=== PATIENT | female | born 1960 | race Caucasian/White ===

== ENCOUNTER 2019-02-17 13:41 | Emergency (ER) | payer BC ==
--- NOTE | 2019-02-17 14:32 | ER Document Report ---
ED Medical Screen (RME) - General Chief Complaint: Abdominal Pain Stated Complaint: ABDOMINAL PAIN Time Seen by Provider: 02/17/19 14:27 Mode of Arrival: Ambulatory Information source: Patient Notes: 58-year-old female presented to ED for complaint of abdominal pain off and on for couple of months. For the last week he has been constant. 2 weeks ago on Wednesday she became very nauseated and was not able to eat anything through Wednesday of the following week. Wednesday night she was able to eat a little bit but was not able to get up out of her room due to weakness. She states throughout this whole time she has been burping constantly. she became nauseated again through today and is not able to eat. The primary care doctor did not have an available appointment so they sent her to the urgent care and when she called the urgent care they said they would not be able to treat her because she would probably need imaging and they did not have that available so they sent her to the emergency room. Patient states she does not drink smoke or use any illicit drugs. Very morbidly obese at 198 kg bmi of 85.3. I have greeted and performed a rapid initial assessment of this patient. A comprehensive ED assessment and evaluation of the patient, analysis of test results and completion of medical decision making process will be conducted by an additional ED providers. - Related Data Allergies/Adverse Reactions: Penicillins Allergy (Verified 02/17/19 14:25) simethicone Allergy (Verified 02/17/19 14:25) Past Medical History - General Information source: Patient - Social History Cigarette use (# per day): No Frequency of alcohol use: None Drug Abuse: None Lives with: Friend Family history: Reviewed & Not Pertinent - Past Medical History Cardiac Medical History: Reports: Other - Mitral valve prolapse minor Pulmonary Medical History: Reports: Hx Asthma, Hx Pneumonia EENT Medical History: Reports: None Neurological Medical History: Reports: None Endocrine Medical History: Reports: Other - 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
[2019-02-17 15:20] LABS: HEMOGLOBIN 12.9 g/dL (12.0-15.5); MEAN CORPUSCULAR HEMOGLOBIN 28.1 pg (27.0-33.4); MEAN CORPUSCULAR HGB CONC 33.1 g/dL (32.0-36.0); MEAN CORPUSCULAR VOLUME 85 fl (80-97); PLATELET COUNT 266 10^3/uL (150-450); RED CELL DISTRIBUTION WIDTH 16.9 % (11.5-14.0); WHITE BLOOD COUNT 24.6 10^3/uL (4.0-10.5)
[2019-02-17 15:32] LABS: ALBUMIN 3.6 g/dL (3.5-5.0); ALKALINE PHOSPHATASE 245 U/L (38-126); ANION GAP 13 (5-19); ASPARTATE AMINO TRANSFERASE 77 U/L (14-36); BILIRUBIN,DIRECT 10.4 mg/dL (0.0-0.4); BILIRUBIN,TOTAL 12.7 mg/dL (0.2-1.3); BLOOD UREA NITROGEN 22 mg/dL (7-20); CALCIUM 9.4 mg/dL (8.4-10.2); CARBON DIOXIDE 26 mmol/L (22-30); CHLORIDE 99 mmol/L (98-107); GLUCOSE 147 mg/dL (75-110); POTASSIUM 3.4 mmol/L (3.6-5.0); TOTAL PROTEIN 6.7 g/dL (6.3-8.2)
[2019-02-17 15:51] LABS: BAND NEUTROPHILS % (MANUAL) 8 % (3-5); BASOPHILS % (MANUAL) 0 % (0-2); EOSINOPHILS % (MANUAL) 0 % (0-6); LYMPHOCYTES % (MANUAL) 4 % (13-45); METAMYELOCYTES % (MANUAL) 1 % (0-1); MONOCYTES % (MANUAL) 4 % (3-13); SEGMENTED NEUTROPHILS % (MAN) 83 % (42-78); TOTAL CELLS COUNTED 100
[2019-02-17 15:52] LABS: ANISOCYTOSIS 1+; PLATELET COMMENT ADEQUATE
[2019-02-17] MEDS ORDERED: NORMAL SALINE 1000 ML 2,000 ML IV ONE (17:39)
[2019-02-17] MEDS ORDERED: ONDANSETRON HCL INJ/PF 4 MG/2 ML SDV IV ONE (17:51)
[2019-02-17] MEDS ORDERED: MORPHINE SULFATE 10 MG/ML INJ IV ONE (17:51)
--- NOTE | 2019-02-17 17:54 | ER Document Report ---
ED General - General Mode of Arrival: Ambulatory TRAVEL OUTSIDE OF THE [place]. IN LAST 30 DAYS: No <KERI RAEHANIE Sharmaine - Last Filed: 02/18/19 00:13> <BRAD DINH - Last Filed: 02/18/19 07:54> - General Chief Complaint: Nausea/Vomiting Stated Complaint: ABDOMINAL PAIN Time Seen by Provider: 02/17/19 14:27 Primary Care Provider: CURT DANIELLE MD [Primary Care Provider] - Follow up as needed Notes: Patient is a 58-year-old female who presents to the emergency department with a chief complaint of nausea, vomiting, and abdominal pain. Patient has had her symptoms for the past few weeks. This last week it has gotten progressively worse. Patient states that she is able to keep down water, but everything else ends up coming up. The pain is in her mid upper abdomen. Patient states that her primary care did not have any appointments, therefore she went to urgent care and urgent care then referred her to us. Pain is in the mid upper abdomen. Pain does not radiate. Past medical history includes hypothyroidism and she is also currently on oxybutynin for urinary spasms. (VICKEY RAE) - Related Data Allergies/Adverse Reactions: Penicillins Allergy (Verified 02/17/19 14:25) simethicone Allergy (Verified 02/17/19 14:25) Past Medical History - General Information source: Patient - Social History Smoking Status: Never Smoker Cigarette use (# per day): No Chew tobacco use (# tins/day): No Frequency of alcohol use: None Drug Abuse: None Lives with: Friend Patient has suicidal ideation: No Patient has homicidal ideation: No - Past Medical History Cardiac Medical History: Reports: Other - Mitral valve prolapse minor Pulmonary Medical History: Reports: Hx Asthma, Hx Pneumonia EENT Medical History: Reports: None Neurological Medical History: Reports: None Endocrine Medical History: Reports: Other - 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 Denies recent unintentional weight loss. Denies fever, chills, or sweats. EENT: Denies eye, ear, throat, or mouth pain, discharge, or symptoms. Denies nasal or sinus congestion. CARDIOVASCULAR: Denies chest pain. RESPIRATORY: Denies shortness of breath, cough, congestion, difficulty breathing, or wheezing. GASTROINTESTINAL: See HPI. GENITOURINARY: Denies difficulty urinating, burning, blood in urine, urgency or frequency. MUSCULOSKELETAL: Denies neck and back pain. Denies joint pain or swelling. SKIN: Denies rash, itchiness, or lesions HEMATOLOGIC : Denies easy bruising or bleeding. LYMPHATIC: Denies swollen, painful, enlarged glands. NEUROLOGICAL: Denies no numbness or tingling denies weakness. Denies headache. Denies altered mental status. Denies alteration in speech. PSYCHIATRIC: Denies stress, anxiety, alteration in sleep patterns, or depression. All other systems reviewed and negative. (VICKEY RAE) Physical Exam <VICKEY RAE - Last Filed: 02/18/19 00:13> - Vital signs Vitals: Temp Pulse Resp BP Pulse Ox 98 F 92 20 128/68 H 95 02/17/19 14:01 02/17/19 14:01 02/17/19 14:01 02/17/19 14:01 02/17/19 14:01 - Notes Notes: PHYSICAL EXAMINATION: GENERAL: Appears morbidly obese, no acute distress. HEAD: Normocephalic, atraumatic. EYES: PERRL, conjunctiva normal, all extraocular movements intact, sclera nonicteric ENT: Moist mucous membranes. NECK: Supple, no noticeable swelling, redness, rash. Normal range of motion. LUNGS: Equal breath sounds bilaterally and clear to auscultation. No wheezes rales or rhonchi. CARDIOVASCULAR: S1-S2, regular rate, regular rhythm. Radial pulses 2+, normal. ABDOMEN: Normoactive bowel sounds. Soft, tender mid upper abdomen, no guarding, no rebound tenderness, and no masses palpated. EXTREMITIES: Normal strength and range of motion, no pitting or edema. No cyanosis. NEUROLOGICAL: Moves all extremities upon command. Strength 5/5 in all extremities. PSYCH: Normal mood, normal affect. SKIN: Warm, dry. No rash, lesions, ulcerations noted. Normal skin turgor. (VICKEY RAE) Course - Laboratory Result Diagrams: 02/17/19 14:57 02/17/19 14:57 <VICKEY RAE - Last Filed: 02/18/19 00:13> - Laboratory Result Diagrams: 02/17/19 14:57 02/17/19 14:57 - Diagnostic Test Radiology reviewed: Reports reviewed <BRAD DINH - Last Filed: 02/18/19 07:54> - Re-evaluation Re-evalutation: 02/17/19 17:53 Patient has a leukocytosis of 24,600. Chemistry shows a lipase of 3621, consistent with pancreatitis. She also has an acute kidney injury with a BUN of 22 and creatinine of 1.56. Patient's total bilirubin is 12.7 and direct bilirubin is 10.4. Patient will be sent for a CT of the abdomen pelvis. 02/17/19 19:36 CT abdomen and pelvis is negative at this time. I spoke with Dr. Mccloud, my attending physician. She is recommending that I speak with the radiologist to determine how large the common bile duct is. I also spoke with [facility]. They will call me back with the GI doctor. 02/17/19 19:[address] Rea, the radiologist he states the common bile duct is about 7 to 8 mm, but states that it is hard to distinguish due to contrast not reaching that area, most likely due to the patient's size. 02/17/19 20:41 I spoke with the GI doctor on-call at [facility] and he would like to have the patient transferred to [facility] and with Dr. Pelon Alvarado is the admitting physician. Urinalysis shows a small amount of blood. 02/17/19 22:44 Chest x-ray and x-ray of the neck are unremarkable. (KYRAVICKEY Sharmaine) 02/18/19 01:07 Consulted with [facility] and consulted with Dr. Anthony regarding patient status and reviewed diagnostic results. Dr. Anthony recommends giving meropenem IV instead of ertapenem for broader coverage. Also recommends attempting transfer at another facility to help expedite patient's transfer at this time as they do not have a bed readily available. 02/18/19 02:33 call placed to [facility] transfer center for consultation 02/18/19 03:47 Spoke with [facility] Dr Aric Barber who agrees to accept patient for transfer at this time. 02/18/19 07:00 Patient resting comfortably at this time, vital signs stable. Stable for transfer. (BRAD DINH) - Vital Signs Vital signs: Temp Pulse Resp BP Pulse Ox 98.9 F 74 20 146/93 H 95 02/18/19 07:36 02/18/19 07:36 02/18/19 07:36 02/18/19 07:13 02/18/19 07:36 - Laboratory Laboratory results interpreted by me: 02/17/19 02/17/19 02/17/19 14:57 14:57 16:20 WBC 24.6 H RDW 16.9 H Seg Neuts % (Manual) 83 H Band Neutrophils % 8 H Lymphocytes % (Manual) 4 L Abs Neuts (Manual) 22.6 H Potassium 3.4 L BUN 22 H Creatinine 1.56 H Est GFR ( Amer) 42 L Est GFR (MDRD) Non-Af 34 L Glucose 147 H Total Bilirubin 12.7 H Direct Bilirubin 10.4 H AST 77 H Alkaline Phosphatase 245 H Lipase 3621.2 H Urine Blood SMALL H Discharge <VICKEY RAE - Last Filed: 02/18/19 00:13> <BRAD DINH - Last Filed: 02/18/19 07:54> - Discharge Clinical Impression: Elevated bilirubin Pancreatitis Qualifiers: Chronicity: acute Pancreatitis type: unspecified pancreatitis type Acute pancreatitis complication: unspecified Qualified Code(s): K85.90 - Acute pancreatitis without necrosis or infection, unspecified Abdominal pain Qualifiers: Abdominal location: epigastric Qualified Code(s): R10.13 - Epigastric pain Leukocytosis Qualifiers: Leukocytosis type: bandemia Qualified Code(s): D72.825 - Bandemia Condition: Fair Disposition: [facility] Referrals: CURT DANIELLE MD [Primary Care Provider] - Follow up as needed
--- NOTE | 2019-02-17 19:08 | RADIOLOGY REPORT (SQ) ---
EXAM DESCRIPTION: CT ABD/PELVIS WITH IV ONLY COMPLETED DATE/TIME: 02/17/2019 6:43 pm REASON FOR STUDY: abdominal pain COMPARISON: None. TECHNIQUE: CT scan of the abdomen and pelvis performed using helical scanning technique with dynamic intravenous contrast injection. No oral contrast. Images reviewed with lung, soft tissue, and bone w indows. Reconstructed coronal and sagittal MPR images reviewed. Delayed images were not acquired. All images stored on PACS. All CT scanners at this facility use dose modulation, iterative reconstruction, and/or weight based d osing when appropriate to reduce radiation dose to as low as reasonably achievable (ALARA). [facility]: Dose Right [facility]: CareDose [facility]: Dose Right [facility]: Teradose 4D [facility]: Embedded Chat CONTRAST TYPE AND DOSE: contrast/concentration: Isovue 300.00 mg/ml; Total Contrast Delivered: 99.0 ml; Total Saline Delivered: 72.0 ml RENAL FUNCTION: BUN 22 creatinine 1.56 RADIATION DOSE: CT Rad equipment meets quality standard of care and radiation dose reduction techniq ues were employed. CTDIvol: 21.1 - 30.0 mGy. DLP: 2869 mGy-cm.. LIMITATIONS: None. FINDINGS: LOWER CHEST: No significant findings. Left lower lobe calcified granulomas. LIVER: Normal size. No enhancing masses. No dilated ducts. SPLEEN: Normal size. Scattered calcified granulomas. . PANCREAS: No masses identified. No significant calcifications. No adjacent inflammation or peripancre atic fluid collections. Pancreatic duct not dilated. GALLBLADDER: No calcified stones. No inflammatory changes to suggest cholecystitis. ADRENAL GLANDS: No significant masses. RIGHT KIDNEY AND URETER: No cysts identified. No solid masses identified. No calcified stones. No hyd ronephrosis or hydroureter. LEFT KIDNEY AND URETER: No cysts identified. No solid masses identified. No calcified stones. No hydr onephrosis or hydroureter. AORTA AND VESSELS: No aneurysm. No dissection. Renal arteries, SMA, celiac without significant stenos is. RETROPERITONEUM: No bulky retroperitoneal adenopathy. BOWEL AND PERITONEAL CAVITY: No obstruction or inflammatory changes. No free fluid. APPENDIX: Normal. PELVIS: No mass. No free fluid. Unremarkable bladder. ABDOMINAL WALL: 9.5 cm fat containing paraumbilical hernia. BONES: No acute findings. OTHER: No other significant finding. IMPRESSION: No acute inflammatory changes. TECHNICAL DOCUMENTATION: JOB ID: [id number] Quality ID # [id number]: Final reports with documentation of one or more dose reduction techniques (e.g., Au tomated exposure control, adjustment of the mA and/or kV according to patient size, use of iterative reconstruction technique) 2010 [employer]- All Rights Reserved Reading location - IP/workstation name: [email or web address]
[2019-02-17 20:23] LABS: APPEARANCE,URINE CLEAR; BILIRUBIN,URINE NEGATIVE (NEGATIVE); COLOR,URINE YELLOW; GLUCOSE, URINE NEGATIVE (NEGATIVE); KETONES,URINE NEGATIVE (NEGATIVE); PROTEIN,URINE NEGATIVE (NEGATIVE); URINE SPECIFIC GRAVITY 1.002; UROBILINOGEN,URINE NEGATIVE mg/dL (<2.0)
--- NOTE | 2019-02-17 21:28 | RADIOLOGY REPORT (SQ) ---
EXAM DESCRIPTION: XR CHEST 1 VIEW COMPLETED DATE/TME: 02/17/2019 20:13 . CLINICAL HISTORY: sensation of something in throat COMPARISON: Abdomen per day FINDINGS: Cardiac silhouette is within normal limits. Aorta is tortuous. Lung apices are overpenetrated. There is nodular opacity within the periphery of the left mid lung compatible with a calcified pulmonary nodule. There is no focal parenchymal or pleural disease. There is no acute osseous process visualized. IMPRESSION: No evidence of acute cardiopulmonary disease.
--- NOTE | 2019-02-17 21:31 | RADIOLOGY REPORT (SQ) ---
EXAM DESCRIPTION: XR NECK SOFT TISSUE COMPLETED DATE/TME: 02/17/2019 20:14 CLINICAL HISTORY: sensation of something in throat COMPARISON: None FINDINGS: Two x-ray views of the neck were submitted. Prevertebral soft tissues are within normal. There is no radiopaque foreign body material. IMPRESSION: No acute abnormalities.
[2019-02-17] MEDS ORDERED: NORMAL SALINE 1000 ML 1,000 ML IV ONE (22:19)
[2019-02-18] MEDS: MORPHINE SULFATE 10 MG/ML INJ IV PRN ×2 (00:47→06:24)
[2019-02-18] MEDS: ERTAPENEM SODIUM INJ 1 GM VIAL IV ONE ×2 (00:49→01:15)
[2019-02-18] MEDS: MEROPENEM 1 GM VIAL IV SCH ×2 (01:17→06:24)
[2019-02-18 07:20] VITALS: BP 146/93
== END 2019-02-18 07:45 | disposition short-term general hospital (02) ==
LOC: ER 13:41
DX: K85.90 Acute pancreatitis without necrosis or infection, unspecified (principal); N17.9 Acute kidney failure, unspecified; R79.89 Other specified abnormal findings of blood chemistry; R10.13 Epigastric pain; D72.825 Bandemia; R11.2 Nausea with vomiting, unspecified; R31.9 Hematuria, unspecified; J45.909 Unspecified asthma, uncomplicated; R25.2 Cramp and spasm; Z79.899 Other long term (current) drug therapy; Z88.0 Allergy status to penicillin; Z88.8 Allergy status to other drugs, medicaments and biological substances
CPT/HCPCS: 96376; 99285; 96361; 96374; 96375; 36415; 87040; 83690; 85025; 80053; 81001; 83605; 71045; 70360; 74177; J2270 ×2; J2405; J7030; J2185; J1335

== ENCOUNTER 2019-06-17 12:07 | Emergency (ER) | payer BC ==
--- NOTE | 2019-06-17 12:52 | ER Document Report ---
ED Medical Screen (RME) - General Chief Complaint: Abdominal Pain Stated Complaint: ABDOMINAL PAIN Time Seen by Provider: 06/17/19 12:48 Primary Care Provider: SILVA ARITA MD [Primary Care Provider] - Follow up as needed TRAVEL OUTSIDE OF THE [place]. IN LAST 30 DAYS: No - HPI Notes: 06/17/19 12:51 Patient is a 58-year-old morbidly obese female with history of pancreatitis, "g allbladder that needs to come out," "a blood clot in my liver" (on Xarelto) presents complaining of epigastric/upper abdominal pain that began 3 days ago. Patient states it feels similar to pancreatitis. The pain does radiate up into her chest. No fever or shortness of breath. I have treated and performed a rapid initial assessment of this patient. A comprehensive ED assessment and evaluation of the patient, analysis of test results and completion of medical decision making process will be conducted by additional ED providers. PHYSICAL EXAMINATION: GENERAL: Well-appearing, well-nourished and in no acute distress. Abdomen: Limited exam triage, there is tenderness the epigastrium. - Related Data Allergies/Adverse Reactions: Penicillins Allergy (Verified 06/17/19 12:48) simethicone Allergy (Verified 06/17/19 12:48) Past Medical History - Social History Family history: Reviewed & Not Pertinent Pulmonary Medical History: Reports: Hx Asthma, Hx Pneumonia Physical Exam - Vital signs Vitals: Temp Pulse Resp BP Pulse Ox 98.4 F 70 22 H 172/99 H 96 06/17/19 12:19 06/17/19 12:19 06/17/19 12:19 06/17/19 12:19 06/17/19 12:19 Course - Vital Signs Vital signs: Temp Pulse Resp BP Pulse Ox 98.4 F 70 22 H 172/99 H 96 06/17/19 12:19 06/17/19 12:19 06/17/19 12:19 06/17/19 12:19 06/17/19 12:19 Doctor's Discharge - Discharge Referrals: SILVA ARITA MD [Primary Care Provider] - Follow up as needed
[2019-06-17] MEDS ORDERED: ONDANSETRON 4 MG TAB.RAPDIS PO ONE (12:53)
[2019-06-17 13:40] LABS: ABSOLUTE LYMPHOCYTES (AUTO) 0.5 10^3/uL (0.5-4.7); ABSOLUTE MONOCYTES (AUTO) 0.3 10^3/uL (0.1-1.4); ABSOLUTE NEUT (AUTO) 4.6 10^3/uL (1.7-8.2); BASOPHILS % (AUTO) 0.3 % (0-2); EOSINOPHILS % (AUTO) 0.5 % (0-6); HEMATOCRIT 38.5 % (36.0-47.0); LYMPHOCYTES % (AUTO) 9.8 % (13-45); MEAN CORPUSCULAR HEMOGLOBIN 29.6 pg (27.0-33.4); MEAN CORPUSCULAR HGB CONC 33.7 g/dL (32.0-36.0); MEAN CORPUSCULAR VOLUME 88 fl (80-97); MONOCYTES % (AUTO) 5.2 % (3-13); PLATELET COUNT 187 10^3/uL (150-450); RED BLOOD COUNT 4.38 10^6/uL (3.72-5.28); RED CELL DISTRIBUTION WIDTH 14.1 % (11.5-14.0); SEGMENTED NEUTROPHILS % (AUTO) 84.2 % (42-78); TOTAL CELLS COUNTED % (AUTO) 100 %; WHITE BLOOD COUNT 5.4 10^3/uL (4.0-10.5)
[2019-06-17 13:43] LABS: INTERNATIONAL RATION (INR) 0.95; PROTHROMBIN TIME 12.7 SEC (11.4-15.4)
[2019-06-17 13:44] LABS: PARTIAL THROMBOPLASTIN TIME 32.1 SEC (23.5-35.8)
[2019-06-17] MEDS ORDERED: MORPHINE SULFATE 10 MG/ML INJ IV ONE ×2 (13:51→18:46)
--- NOTE | 2019-06-17 13:54 | RADIOLOGY REPORT (SQ) ---
EXAM DESCRIPTION: CHEST SINGLE VIEW COMPLETED DATE/TIME: 06/17/2019 1:38 pm REASON FOR STUDY: epigastric pain COMPARISON: 02/28/2019. EXAM PARAMETERS: NUMBER OF VIEWS: One view. TECHNIQUE: Single frontal radiographic view of the chest acquired. RADIATION DOSE: NA LIMITATIONS: Limited penetration. FINDINGS: LUNGS AND PLEURA: No opacities, masses or pneumothorax. No pleural effusion. MEDIASTINUM AND HILAR STRUCTURES: No masses. Contour normal. HEART AND VASCULAR STRUCTURES: Cardiomegaly. BONES: No acute findings. HARDWARE: None in the chest. OTHER: No other significant finding. IMPRESSION: LIMITED STUDY. CARDIOMEGALY. NO APPARENT ACUTE RADIOGRAPHIC FINDING IN THE CHEST. TECHNICAL DOCUMENTATION: JOB ID: [id number] 2010 [employer]- All Rights Reserved Reading location - IP/workstation name: [email or web address]
[2019-06-17 13:56] LABS: ALBUMIN 4.2 g/dL (3.5-5.0); ALKALINE PHOSPHATASE 364 U/L (38-126); ANION GAP 12 (5-19); ASPARTATE AMINO TRANSFERASE 109 U/L (14-36); BILIRUBIN,DIRECT 4.1 mg/dL (0.0-0.4); BILIRUBIN,TOTAL 5.6 mg/dL (0.2-1.3); BLOOD UREA NITROGEN 12 mg/dL (7-20); CALCIUM 9.7 mg/dL (8.4-10.2); CARBON DIOXIDE 27 mmol/L (22-30); CHLORIDE 97 mmol/L (98-107); GLUCOSE 118 mg/dL (75-110); POTASSIUM 3.5 mmol/L (3.6-5.0); TOTAL PROTEIN 7.4 g/dL (6.3-8.2)
[2019-06-17] MEDS ORDERED: IPRATROPIUM/ALBUTEROL 0.5-2.5 MG/3 ML AMPUL NEB ONE (15:21)
--- NOTE | 2019-06-17 15:43 | ER Document Report ---
ED General - General TRAVEL OUTSIDE OF THE [place] IN LAST 30 DAYS: No - Related Data Home Medications: xarelto. synthroid. hydroxyzine. oxybutynin. pantoprazole. polyethylene. senokot. simethicone. tylenol <AMY GALEANO - Last Filed: 06/17/19 16:05> <EPIFANIO STALEY - Last Filed: 06/17/19 18:13> - General Chief Complaint: Abdominal Pain Stated Complaint: ABDOMINAL PAIN Time Seen by Provider: 06/17/19 12:48 Primary Care Provider: SILVA ARITA MD [ACTIVE STAFF] - Follow up as needed - HPI Notes: 58-year-old female complaining of abdominal pain nausea vomiting wheezing and shortness of breath. Patient had a similar presentation to this hospital about 3 months ago and at that time was found to have pancreatitis and hyperbilirubinemia and was subsequently transferred to [facility]. She was found to have cholelithiasis and portal vein thrombosis. After an extended hospitalization she was discharged on Xarelto. She continues to take Xarelto. She denies abuse of alcohol. Patient describes her discomfort as epigastric radiating to the both breasts and into posterior thoracic area. (AMY GALEANO) - Related Data Allergies/Adverse Reactions: Penicillins Allergy (Verified 06/17/19 12:48) simethicone Allergy (Verified 06/17/19 12:48) Past Medical History - General Information source: Patient - Social History Smoking Status: Never Smoker Chew tobacco use (# tins/day): No Frequency of alcohol use: None Drug Abuse: None Family History: Reviewed & Not Pertinent Patient has suicidal ideation: No Patient has homicidal ideation: No Pulmonary Medical History: Reports: Hx Asthma, Hx Pneumonia GI Medical History: Reports: Hx Pancreatitis, Other - Cholelithiasis. Portal vein thrombosis. <AMY GALEANO - Last Filed: 06/17/19 16:05> Review of Systems <AMY GALEANO - Last Filed: 06/17/19 16:05> - Review of Systems Notes: Constitutional: Negative for fever. HENT: Negative for sore throat. Eyes: Negative for visual changes. Cardiovascular: Negative for chest pain. Respiratory: As per HPI. Gastrointestinal: As per HPI. Genitourinary: Negative for dysuria. Musculoskeletal: As per HPI. Skin: Negative for rash. Neurological: Negative for headaches, weakness or numbness. 10 point ROS negative except as marked above and in HPI. (AMY GALEANO) Physical Exam <AMY GALEANO - Last Filed: 06/17/19 16:05> - Vital signs Vitals: Temp Pulse Resp BP Pulse Ox 98.4 F 70 22 H 172/99 H 96 06/17/19 12:19 06/17/19 12:19 06/17/19 12:19 06/17/19 12:19 06/17/19 12:19 - Notes Notes: GENERAL: Obese female appearing much older than her stated age. SKIN: Good turgor no rashes. HEAD: Normocephalic atraumatic. EYES: PERRLA. EOMI. Conjunctivae and sclerae clear. EARS: CANALS AND TMS CLEAR. NOSE: CLEAR. MOUTH: Moist mucosa. Good dentition. No stridor or edema. No drooling. NECK: Supple. No masses or thyromegaly. No adenopathy. Carotids 2+ without bruits. No JVD. BACK: Symmetrical without tenderness. CHEST: Mildly tachypneic. End expiratory wheezes and scattered rhonchi bilaterally with symmetrical breath sounds. HEART: Regular rhythm. No murmur gallop or rub. ABDOMEN: Moderate epigastric tenderness. Soft obese without masses, organomegaly or rebound. Bowel sounds normally active. No bruits. GENITALIA: Deferred. EXTREMITIES: 3+ brawny edema both lower legs. No calf tenderness. Cap refill less than 1.5 seconds. Dorsalis pedis and posterior tibial pulses 3+ and symmetrical. NEUROLOGICAL: GCS 15. Alert and oriented x3. Fluent speech. Cranial nerves II through XII intact. Sensorimotor and cerebellar normal. Normal tone. PSYCHIATRIC: Anxious affect. (AMY GALEANO) Course - Laboratory Result Diagrams: 06/17/19 13:18 06/17/19 13:18 <AMY GALEANO - Last Filed: 06/17/19 16:05> - Laboratory Result Diagrams: 06/17/19 13:18 06/17/19 13:18 - Diagnostic Test Radiology reviewed: Image reviewed, Reports reviewed - EKG Interpretation by [facility] EKG shows normal: Sinus rhythm, Intervals, QRS Complexes, ST-T Waves Rate: Normal Rhythm: NSR [place]/QRS: Left axis deviation <EPIFANIO STALEY - Last Filed: 06/17/19 18:13> - Re-evaluation Re-evalutation: 06/17/19 15:52 Review of labs consistent with recurrent pancreatitis. Pending studies this time include arterial blood gas and CT abdomen pelvis with IV contrast. Anticipate patient will need to be transferred back to [facility]. 06/17/19 16:05 Further care of this patient is turned over to Dr. Epifanio Staley 1600 hours. (AMY GALEANO) 06/17/19 17:48 The patient has a right lower lobe pneumonia on CT abd/pelvis and her pancreas is inflamed and consistent with acute pancreatitis. Will obtain blood cultures and treat with Levaquin. The patient has a history of portal vein thrombosis and gallstones and she is followed at [facility] for her GI issues. The patient says she was supposed to have some gallstones removed (not sure if she means her gallbladder or having an ERCP) but she says this was put on hold given her portal vein thrombosis. Will call [facility] for likely transfer. 06/17/19 18:12 [facility] accepted the patient under Dr. Bradley to a medical floor bed. [facility] requested a Flu swab prior to transfer. (EPIFANIO STALEY) - Vital Signs Vital signs: Temp Pulse Resp BP Pulse Ox 98.4 F 70 20 154/90 H 98 06/17/19 12:19 06/17/19 12:19 06/17/19 17:01 06/17/19 17:00 06/17/19 17:01 - Laboratory Laboratory results interpreted by al: 06/17/19 06/17/19 06/17/19 13:18 13:18 13:18 RDW 14.1 H Lymph % (Auto) 9.8 L Seg Neutrophils % 84.2 H Carbonic Acid ABG pCO2 ABG pO2 ABG HCO3 ABG Total CO2 Sodium 136.4 L Potassium 3.5 L Chloride 97 L Creatinine 0.41 L Glucose 118 H Total Bilirubin 5.6 H Direct Bilirubin 4.1 H AST 109 H ALT 128 H Alkaline Phosphatase 364 H NT-Pro-B Natriuret Pep 201 H Lipase 47516.5 H 06/17/19 16:01 RDW Lymph % (Auto) Seg Neutrophils % Carbonic Acid 1.44 H ABG pCO2 47.7 H ABG pO2 111.5 H ABG HCO3 26.7 H ABG Total CO2 28.2 H Sodium Potassium Chloride Creatinine Glucose Total Bilirubin Direct Bilirubin AST ALT Alkaline Phosphatase NT-Pro-B Natriuret Pep Lipase Discharge <AMY GALEANO E - Last Filed: 06/17/19 16:05> - Discharge Admitting Provider: Dr. Bradley Unit Admitted: Medical Floor <EPIFANIO STALEY H - Last Filed: 06/17/19 18:13> - Discharge Clinical Impression: Acute pancreatitis Qualifiers: Pancreatitis type: unspecified pancreatitis type Acute pancreatitis complication: unspecified Qualified Code(s): K85.90 - Acute pancreatitis without necrosis or infection, unspecified Pneumonia Qualifiers: Pneumonia type: due to unspecified organism Laterality: right Lung location: lower lobe of lung Qualified Code(s): J18.9 - Pneumonia, unspecified organism Condition: Stable Disposition: [facility] Referrals: SILVA ARITA MD [ACTIVE STAFF] - Follow up as needed
[2019-06-17 16:18] LABS: ARTERIAL BLOOD BASE EXCESS 0.8 mmol/L; ARTERIAL BLOOD FIO2 36%; ARTERIAL BLOOD H2CO3 1.44 mmol/L (1.05-1.35); ARTERIAL BLOOD HCO3 26.7 mmol/L (20-24); ARTERIAL BLOOD O2 SATURATION 97.9 % (94-98); ARTERIAL BLOOD PCO2 47.7 mmHg (35-45); ARTERIAL BLOOD PH 7.37 (7.35-7.45); ARTERIAL BLOOD PO2 111.5 mmHg (80-100); ARTERIAL BLOOD TOTAL CO2 28.2 mmol/L (21-25)
--- NOTE | 2019-06-17 17:33 | EKG REPORT ---
SEVERITY:- OTHERWISE NORMAL ECG - SINUS RHYTHM BORDERLINE LEFT AXIS DEVIATION : Confirmed by: Ninfa Torres MD 17-Jun-2019 17:32:13
--- NOTE | 2019-06-17 17:34 | RADIOLOGY REPORT (SQ) ---
EXAM DESCRIPTION: CT ABD/PELVIS WITH IV ONLY COMPLETED DATE/TIME: 06/17/2019 4:43 pm REASON FOR STUDY: pancreatitis COMPARISON: 02/17/2019 TECHNIQUE: CT scan of the abdomen and pelvis performed using helical scanning technique with dynamic intravenous contrast injection. No oral contrast. Images reviewed with lung, soft tissue, and bone windows. Reconstructed coronal and sagittal MPR images reviewed. Delayed images for evaluation of the urinary system also acquired. All images stored on PACS. All CT scanners at this facility use dose modulation, iterative reconstruction, and/or weight based d osing when appropriate to reduce radiation dose to as low as reasonably achievable (ALARA). [facility]: Dose Right [facility]: CareDose [facility]: Dose Right [facility]: Teradose 4D [facility]: Limtel CONTRAST TYPE AND DOSE: contrast/concentration: Isovue 350.00 mg/ml; Total Contrast Delivered: 100.0 ml; Total Saline Delivered: 72.0 ml RENAL FUNCTION: GFR > 60. RADIATION DOSE: . LIMITATIONS: Patient body habitus FINDINGS: LOWER CHEST: Patchy airspace opacities are present in the right lower lobe. LIVER: The intrahepatic biliary ducts are dilated. SPLEEN: Normal size. No focal lesions. PANCREAS: There is subtle inflammatory change noted about the head and body of the pancreas. No chantelle pancreatic fluid collections present. GALLBLADDER: The gallbladder is not discretely identified and may be surgically absent. ADRENAL GLANDS: No significant masses or asymmetry. RIGHT KIDNEY AND URETER: No solid masses. No significant calcifications. No hydronephrosis or hyd roureter. LEFT KIDNEY AND URETER: No solid masses. No significant calcifications. No hydronephrosis or hydr oureter. AORTA AND VESSELS: No aneurysm. No dissection. Renal arteries, SMA, celiac without stenosis. RETROPERITONEUM: No retroperitoneal adenopathy, hemorrhage or masses. BOWEL AND PERITONEAL CAVITY: No masses or inflammatory changes. No free fluid or peritoneal masses. APPENDIX: Normal. PELVIS: No mass. No free fluid. Normal bladder. ABDOMINAL WALL: Stable large fat containing umbilical hernia. BONES: No significant or acute findings. OTHER: No other significant finding. IMPRESSION: 1. Patchy airspace opacities in the right lower lobe, consistent with pneumonia in the correct clinical setting 2. Subtle inflammatory changes about the head and body of the pancreas, possibly consistent patient' s history of pancreatitis. 3. Intra and extrahepatic mild biliary duct dilatation. No definite obstruction identified. TECHNICAL DOCUMENTATION: JOB ID: [id number] Quality ID # [id number]: Final reports with documentation of one or more dose reduction techniques (e.g., Au tomated exposure control, adjustment of the mA and/or kV according to patient size, use of iterative reconstruction technique) 2010 [employer] All Rights Reserved Reading location - IP/workstation name: [email or web address]
[2019-06-17] MEDS ORDERED: LEVOFLOXACIN 750 MG/D5W RTU 750 MG/150 ML RTUPB IV ONE (18:00)
[2019-06-17 18:54] LABS: APPEARANCE,URINE SLIGHTLY-CLOUDY; BILIRUBIN,URINE MODERATE (NEGATIVE); COLOR,URINE AMBER; GLUCOSE, URINE 50 mg/dL (NEGATIVE); KETONES,URINE 80 mg/dL (NEGATIVE); PROTEIN,URINE 100 mg/dL (NEGATIVE)
[2019-06-17 19:34] LABS: A TYPE INFLUENZA AG NEGATIVE (NEGATIVE); B INFLUENZA AG NEGATIVE (NEGATIVE)
[2019-06-17 20:16] VITALS: BP 168/95
== END 2019-06-17 20:25 | disposition short-term general hospital (02) ==
LOC: ER 12:07
DX: K85.90 Acute pancreatitis without necrosis or infection, unspecified (principal); J18.9 Pneumonia, unspecified organism; K80.20 Calculus of gallbladder without cholecystitis without obstruction; R11.2 Nausea with vomiting, unspecified; R06.02 Shortness of breath; E66.9 Obesity, unspecified; R60.0 Localized edema; J45.909 Unspecified asthma, uncomplicated; I81 Portal vein thrombosis; Z79.01 Long term (current) use of anticoagulants; Z79.899 Other long term (current) drug therapy; Z88.0 Allergy status to penicillin; Z88.8 Allergy status to other drugs, medicaments and biological substances
CPT/HCPCS: 93005; 96376; 94640; 99285; 96375; 96365; 96366; 36415; 87040; 82803; 83605; 83690; 85025; 85610; 85730; 87077; 80053; 81001; 84484; 87804; 87150 ×26; 83880; 71045; 74177; 93010; 36600; S0119; J2270; J1956; J7620